=== PATIENT | male | born 1990 | race Caucasian/White ===

== ENCOUNTER 2023-10-11 15:42 | Emergency (ER) | payer OTHER, SELFPAY ==
[2023-10-11 15:46] VITALS: BP 130/83
--- NOTE | 2023-10-11 16:51 | ED.GENMED ---
History of Present Illness
<Mary Canales PA-C - Last Filed: 10/11/23 18:50>
General
Chief Complaint: Skin Problem
Source: patient
Exam Limitations: none
Time Seen by Provider: 10/11/23 16:43
Nursing documentation reviewed up to this point in time: agreed with
Travel History
Have you had any contact with someone who has COVID-19?: No
Do you have any symptoms of coronavirus? Fever > 100 degrees, chills, cough, shortness of breath, sore throat, loss of taste or smell, muscle aches, or headache?: No
History of Present Illness
History of Present Illness:
Patient is a 33-year-old male with a past medical history of hypertension presenting emergency department today with a laceration to the right forearm. Patient states that for his job, he works with metal mesh and was working with it when he picked
it up and subsequently cut his arm and tore his shirt. Patient denies any possible foreign body, denies any abdominal pain, chest pain, shortness of breath or any other injuries. Patient denies any falls. Patient denies any numbness or tingling.
Patient notes some mild burning at the site of the laceration otherwise currently has no pain. Patient is up-to-date on his tetanus vaccination.
Past History
<Mary Canales PA-C - Last Filed: 10/11/23 18:50>
Past History
ED Past Medical History: None
ED Past Surgical History: Orthopedic
Social History
Tobacco: Smoker
Alcohol: None
Drug: None
Living: with family
Employment: Employed
Family History
Family History: Unable to obtain (non-contributory)
Review of Systems
<Mary Canales PA-C - Last Filed: 10/11/23 18:50>
Review of Systems
All Other Systems: ROS reviewed and negative except as documented in HPI and ROS
Phy Exam
<Mary Canales PA-C - Last Filed: 10/11/23 18:50>
Physical Exam
Physical Exam:
General: Patient is well-appearing in no acute distress
Skin: There is a 3.5 cm laceration on the anterior surface of the right forearm, is not actively bleeding. No areas of ecchymosis, no other signs of trauma.
Cardiac: Regular rate
Pulm: Normal respiratory effort.
Abdomen: No abdominal tenderness, no lacerations/abrasions, no areas of ecchymosis.
Musculoskeletal: No bony tenderness palpation of the right radius and ulna. 2+ ulnar and radial pulses, brisk cap refill.
Neuro: Patient is alert and oriented x 3. CN II-XII intact.
Course
<Mary Canales PA-C - Last Filed: 10/11/23 18:50>
Vital Signs
Initial and Last Documented VS:
Initial Vital Signs
Temp Pulse Resp BP Pulse Ox
98.3 F 84 18 130/83 98
10/11/23 15:46 10/11/23 15:46 10/11/23 15:46 10/11/23 15:46 10/11/23 15:46
Last Documented Vital Signs
Temp Pulse Resp BP Pulse Ox
98.3 F 85 18 133/84 98
10/11/23 15:46 10/11/23 17:53 10/11/23 15:46 10/11/23 17:53 10/11/23 15:46
<Parish Bills DO - Last Filed: 10/11/23 20:36>
Vital Signs
Initial and Last Documented VS:
Initial Vital Signs
Temp Pulse Resp BP Pulse Ox
98.3 F 84 18 130/83 98
10/11/23 15:46 10/11/23 15:46 10/11/23 15:46 10/11/23 15:46 10/11/23 15:46
Last Documented Vital Signs
Temp Pulse Resp BP Pulse Ox
98.3 F 85 18 133/84 98
10/11/23 15:46 10/11/23 17:53 10/11/23 15:46 10/11/23 17:53 10/11/23 15:46
Procedures
<Mary Canales PA-C - Last Filed: 10/11/23 18:50>
Laceration Closure
Right Arm:
Status of Wound: clean
Size of Wound in cm: 3.5
Description of Wound Edges: sharp
Preparation: cleaned with saline and cleaned with Betadine
Anesthesia: 1% Lidocaine with epi
Revision/Debridement: routine- no revision
Wound exploration: explored to base- no FB
Type of Closure: single layer closure
Skin Closure Material: 4-0 prolene and 5-0 prolene
Number of sutures: 9
<Mary Canales PA-C - Last Filed: 10/11/23 18:50>
MDM/Problems Addressed
Differential Diagnosis Includes:
ddx include simple laceration, abrasion, muscular contusion
MDM/Problems Addressed:
Right arm laceration
Chronic conditions affecting care: HTN
Acute Exacerbation and/or Progression of Chronic Illness: HTN
<Mary Canales PA-C - Last Filed: 10/11/23 18:50>
*Pulse Oximetry
Patient hypoxic: no
*Critical Care Note
Total Time (30-74mins, 75-104mins- exclusive of procedures): Not Applicable
Data Reviewed
Review of Other/Old Records Reveals: Records (Reviewed ER physician documentation from 04/17/2023, reviewed ER physician documentation from 12/18/2022)
Further Testing Considered But Not Given:
Patient has no bony tenderness palpation, no foreign body, no imaging indicated at this time.
<Mary Canales PA-C - Last Filed: 10/11/23 18:50>
Patient Management
Escalation/DeEscalation of care consider admission/obs:
33-year-old male with past medical history of hypertension presenting the emergency department today with right forearm laceration. On exam, there is a 3.5 cm laceration on the right forearm, it is not actively bleeding, and he has brisk cap
refill. Patient has no bony tenderness palpation on exam and no foreign body, no imaging indicated at this time. Wound was closed with 4-0 prolene stitches, cleaned with saline and Betadine, patient tolerated procedure well. Patient will follow up
with PCP for wound reevaluation and to have stitches removed.
ED Attending Note
<Mary Canales PA-C - Last Filed: 10/11/23 18:50>
-
Portions of this chart may have been created with voice recognition software.� Occasional wrong word or��sound alike� substitutions may have occurred due to the inherent limitations of voice recognition software.
<Parish Bills, - Last Filed: 10/11/23 20:36>
ED Attending Note
Patient seen and examined by attending physician: Yes
I performed a history and physical exam of patient and discussed management with resident, I reviewed resident's note and agree with documented findings and plan of care.: Yes
ED Attending Note:
I have reviewed and agree with history and treatment plan by Mary Canales. My exam revealed 3.5 cm laceration with no active bleeding on right forearm. No other injury. Sutured in ED without event. Stable for discharge.
Discharge Plan
Departure
Patient Disposition: Home (Routine Discharge)
Date of Disposition: 10/11/23
Time of Disposition: 17:41
Patient with high blood pressure during this ER visit?: Yes
Condition: Good
Discharge Problem:
Laceration of arm
Instructions: Laceration Repair With Stitches (DC), BLOOD PRESSURE
Prescriptions:
No Action
No Current Medications
0
Referrals:
Mark Zapata MD [Family Provider] -
Activity Restrictions/Additional Instructions:
Please return to your primary care provider in 7 to 10 days to have the sutures removed. Please return the emergency department to get fevers or chills, pus drainage from the wound, if the wound starts coming apart, or other concerning signs or
symptoms.
Please return the emergency department for any concerns.
Interventions
Interventions:
*Risk Screen - Suicide Last Done: 10/11/23 15:46
*General Assessment Last Done: 10/11/23 15:46
*Neglect/Abuse Screening Last Done: 10/11/23 17:53
*Nursing Disposition Last Done: 10/11/23 17:53
ED-Skin Assessment Last Done: 10/11/23 16:08
Discharge Date and Time
Discharge Date/Time: 10/11/23 17:54
[2023-10-11 17:50] VITALS: BP 133/84
[2023-10-11 17:53] VITALS: BP 133/84
== END 2023-10-11 17:54 | disposition home or self-care (01) ==
LOC: EMR 15:42
PROVIDERS: EMERGENCY PHYSICIAN Emergency Medicine; FAMILY PHYSICIAN Family Medicine
DX: S51.811A Laceration without foreign body of right forearm, initial encounter (principal); W26.9XXA Contact with unspecified sharp object(s), initial encounter; F17.200 Nicotine dependence, unspecified, uncomplicated; I10 Essential (primary) hypertension; Y99.0 Civilian activity done for income or pay
CPT/HCPCS: 12032; 99282

== ENCOUNTER 2023-10-19 20:22 | Emergency (ER) | payer OTHER, SELFPAY ==
[2023-10-19 20:27] VITALS: BP 158/97
--- NOTE | 2023-10-19 21:16 | ED.GENMED ---
History of Present Illness
General
Chief Complaint: Wound Check/Suture Removal
Source: patient
Exam Limitations: none
Time Seen by Provider: 10/19/23 21:03
Travel History
Have you had any contact with someone who has COVID-19?: No
Do you have any symptoms of coronavirus? Fever > 100 degrees, chills, cough, shortness of breath, sore throat, loss of taste or smell, muscle aches, or headache?: No
History of Present Illness
History of Present Illness:
This is a 33 year old male that comes in with c/o redness and soreness on the right forearm. States that he was here last week and had sutures as he cut his arm on a metal wire. State s that last night he noticed that the area was a little sore and
painful. States that today he felt it was huring more when he moved his arm and he felt like there was a burning sensation. States that he is due to have his stitches out on . Denies any fever, chills, nausea, vomiting, dairrhea.
Past History
Past History
ED Past Medical History: HTN and Psychiatric (Anxiety, )
ED Past Surgical History: Appendectomy and Orthopedic (Left shoulder repair, )
Social History
Tobacco: Former smoker
Alcohol: Occasional
Drug: None
Personal:
Living: with family
Employment: Employed
Family History
Family History: Unable to obtain (non-contributory)
Review of Systems
Review of Systems
All Other Systems: ROS reviewed and negative except as documented in HPI and ROS
Constitutional: Reports no symptoms; Denies fever or chills
EENT: Reports no symptoms
Respiratory: Reports no symptoms
Cardiac: Reports no symptoms
ABD/GI: Reports no symptoms
: Reports no symptoms
Musculoskeletal: Reports no symptoms
Skin: Reports other (redness around suture site)
Neurological: Reports no symptoms
Psychiatric: Reports no symptoms
Phy Exam
General Physical Exam
General Presentation: well appearing and no apparent distress
General age: appears stated age
General Skin: warm and dry
General Habitus: normal
General Mental: alert
General Hydration: appears well hydrated
Eye Exam
Eye Exam: EOMI
Musculoskeletal Exam
Musculoskeletal Exam: full ROM
Skin Exam
Skin Exam: normal color, warm/dry, no petechia and redness (Slight redness noted at the suture site only. Negative for any hard palpable mass. )
Psychiatric Exam
Psychiatric Exam: normal mood/affect
Course
Orders/Labs/Results
Orders:
Orders
10/19/23 21:16
Cephalexin Monohydrate [Keflex] 500 mg PO NOW STA
Vital Signs
Initial and Last Documented VS:
Initial Vital Signs
Temp Pulse Resp BP Pulse Ox
97.8 F 80 18 158/97 98
10/19/23 20:27 10/19/23 20:27 10/19/23 20:27 10/19/23 20:27 10/19/23 20:27
Last Documented Vital Signs
Temp Pulse Resp BP Pulse Ox
97.8 F 80 18 158/97 98
10/19/23 20:27 10/19/23 20:27 10/19/23 20:27 10/19/23 20:27 10/19/23 20:27
MDM/Problems Addressed
Differential Diagnosis Includes:
Wound infection. suture irritation
MDM/Problems Addressed:
This is a 33 year old male that comes in with c/o soreness of the right forearm at suture site. States that this started last night and today he felt that it was more sore and felt that there was a lump.
Explained to patient that some redness at the suture line can be expected. Unable to feel any hard lump or mass. WIll place on Keflex and have patient follow up with the family doctor on for suture removal. Patient to return with any fever,
increased redness of any other concerns.
Chronic conditions affecting care:
NA
Acute Exacerbation and/or Progression of Chronic Illness:
NA
*Pulse Oximetry
Patient hypoxic: no
*EKG
Interpreted by ED Provider?: NA
Rate: EKG- N/A
*Neuropsychologist Interpretation
Rate: Neuropsychologist- N/A
*Critical Care Note
Total Time (30-74mins, 75-104mins- exclusive of procedures): Not Applicable
ED Attending Note
-
Portions of this chart may have been created with voice recognition software.� Occasional wrong word or��sound alike� substitutions may have occurred due to the inherent limitations of voice recognition software.
Discharge Plan
Departure
Patient Disposition: Home (Routine Discharge)
Date of Disposition: 10/19/23
Time of Disposition: 21:26
Patient with high blood pressure during this ER visit?: Yes
Condition: Good
Covid-19: Not Applicable
Discharge Problem:
superficial Laceration infection
Instructions: Wound Care (DC), BLOOD PRESSURE
Prescriptions:
New
cephalexin 500 mg capsule
500 mg PO QID Qty: 28 0RF
No Action
escitalopram oxalate [Lexapro] 10 mg Tablet
15 mg PO HS
Activity Restrictions/Additional Instructions:
As discussed, you have been given your first dose of antibiotic here and a prescription for home. Follow up on with the family doctor for suture removal. Wash with warm soapy water. IF YOU HAVE INCREASED REDNESS, FEVER, OR ANY OTHER
CONCERNS PLEASE RETURN TO THE EMERGENCY ROOM.
Interventions
Interventions:
*Risk Screen - Suicide Last Done: 10/19/23 20:27
*General Assessment Last Done: 10/19/23 20:27
*Neglect/Abuse Screening Last Done: 10/19/23 20:27
*ED COVID-19 Vaccine History Last Done: 10/19/23 20:30
ED-Skin Assessment Last Done: 10/19/23 21:10
[2023-10-19] MEDS: KEFLEX 500 MG PO (21:20)
== END 2023-10-19 21:37 | disposition home or self-care (01) ==
LOC: EMR 20:22
PROVIDERS: EMERGENCY PHYSICIAN Emergency Medicine; FAMILY PHYSICIAN Family Medicine
DX: Z48.02 Encounter for removal of sutures (principal); I10 Essential (primary) hypertension; F41.9 Anxiety disorder, unspecified; Z87.891 Personal history of nicotine dependence; Z90.49 Acquired absence of other specified parts of digestive tract
CPT/HCPCS: 99281